=== PATIENT | male | born 1965 | race Caucasian/White ===

== ENCOUNTER 2023-12-11 08:50 | Outpatient (CLI) | payer MEDICARE, BC, SELFPAY | END 2023-12-11 08:51 | disposition home or self-care (01) | PROVIDERS: PCP Physician Assistant; Visit Provider Physician Assistant Surgical | DX: S61.411A Laceration without foreign body of right hand, initial encounter (principal); S61.212A Laceration without foreign body of right middle finger without damage to nail, initial encounter; T23.322A Burn of third degree of single left finger (nail) except thumb, initial encounter; E11.40 Type 2 diabetes mellitus with diabetic neuropathy, unspecified; E11.8 Type 2 diabetes mellitus with unspecified complications; I73.9 Peripheral vascular disease, unspecified; D72.820 Lymphocytosis (symptomatic); F10.20 Alcohol dependence, uncomplicated; Z79.84 Long term (current) use of oral hypoglycemic drugs | CPT/HCPCS: 11042; G0463 ==

== ENCOUNTER 2024-01-01 08:52 | Outpatient (CLI) | payer MEDICARE, SELFPAY | END 2024-01-01 08:53 | disposition home or self-care (01) | LOC: WOUND 08:53 | PROVIDERS: PCP Physician Assistant; Visit Provider Nurse Practitioner Family | DX: S61.411A Laceration without foreign body of right hand, initial encounter (principal); S51.811A Laceration without foreign body of right forearm, initial encounter; E11.40 Type 2 diabetes mellitus with diabetic neuropathy, unspecified; Z79.4 Long term (current) use of insulin | CPT/HCPCS: 97597; 97602 ==

== ENCOUNTER 2024-01-16 10:56 | Outpatient (CLI) | payer MEDICARE, BC, SELFPAY | END 2024-01-16 10:57 | disposition home or self-care (01) | LOC: WOUND 10:56 | PROVIDERS: PCP Physician Assistant; Visit Provider Nurse Practitioner Family | DX: S61.411A Laceration without foreign body of right hand, initial encounter (principal); E11.40 Type 2 diabetes mellitus with diabetic neuropathy, unspecified; Z79.4 Long term (current) use of insulin | CPT/HCPCS: 97597 ==

== ENCOUNTER 2024-01-30 11:05 | Outpatient (CLI) | payer MEDICARE, BC, SELFPAY | END 2024-01-30 11:06 | disposition home or self-care (01) | LOC: WOUND 11:06 | PROVIDERS: PCP Physician Assistant; Visit Provider Nurse Practitioner Family | DX: S61.411A Laceration without foreign body of right hand, initial encounter (principal); S60.411A Abrasion of left index finger, initial encounter; E11.40 Type 2 diabetes mellitus with diabetic neuropathy, unspecified; D72.820 Lymphocytosis (symptomatic); I73.9 Peripheral vascular disease, unspecified; Z79.4 Long term (current) use of insulin; S80.212A Abrasion, left knee, initial encounter; S70.311A Abrasion, right thigh, initial encounter; S50.811A Abrasion of right forearm, initial encounter; V00.811A Fall from moving wheelchair (powered), initial encounter; F10.20 Alcohol dependence, uncomplicated | CPT/HCPCS: G0463 ==

== ENCOUNTER 2024-11-20 10:05 | Outpatient (CLI) | payer MEDICARE, BC, SELFPAY | END 2024-11-20 10:06 | disposition home or self-care (01) | PROVIDERS: PCP Physician Assistant; Visit Provider Nurse Practitioner Family | DX: S61.212A Laceration without foreign body of right middle finger without damage to nail, initial encounter (principal); S61.211A Laceration without foreign body of left index finger without damage to nail, initial encounter; E11.628 Type 2 diabetes mellitus with other skin complications; I73.9 Peripheral vascular disease, unspecified; F10.20 Alcohol dependence, uncomplicated; Z79.4 Long term (current) use of insulin; Z79.84 Long term (current) use of oral hypoglycemic drugs | CPT/HCPCS: 97597; G0463 ==

== ENCOUNTER 2024-12-04 10:11 | Outpatient (CLI) | payer MEDICARE, BC, SELFPAY | END 2024-12-04 10:12 | disposition home or self-care (01) | LOC: WOUND 10:11 | PROVIDERS: PCP Physician Assistant; Visit Provider Nurse Practitioner Family | DX: S61.212A Laceration without foreign body of right middle finger without damage to nail, initial encounter (principal); I73.9 Peripheral vascular disease, unspecified; E11.9 Type 2 diabetes mellitus without complications; Z79.4 Long term (current) use of insulin; F10.20 Alcohol dependence, uncomplicated | CPT/HCPCS: 97597 ==